=== PATIENT | female | born 1985 | race Caucasian/White ===

== ENCOUNTER 2016-03-23 11:01 | Emergency (ER) | payer OTHER ==
[2016-03-23] MEDS ORDERED: OPTIRAY 350 100 ML VIAL HMH IV ONE (11:02)
[2016-03-23] MEDS ORDERED: KETOROLAC 30 MG/ML VIAL ONE (14:17)
[2016-03-23] MEDS ORDERED: DEXAMETHASONE 4 MG/ML VIAL ONE (16:07)
[2016-03-23] MEDS ORDERED: ED CLINDAMYCIN PREMIX 50 ML IV ONE (16:08)
[2016-03-23] MEDS ORDERED: DILAUDID 1 MG/ML AMP ONE (17:02)
== END 2016-03-23 17:27 | disposition home or self-care (01) ==
LOC: ER 11:01
DX: J39.0 Retropharyngeal and parapharyngeal abscess (principal); F17.210 Nicotine dependence, cigarettes, uncomplicated
CPT/HCPCS: 36415; 70491; 71020; 72125; 80048; 85025; 86403; 87880; 96365; 96372; 96375

== ENCOUNTER 2016-03-29 21:18 | Emergency (ER) | payer OTHER ==
[2016-03-29] MEDS ORDERED: KETOROLAC 60 MG/2 ML VIAL IM ONE (22:55)
[2016-03-30] MEDS ORDERED: METHYLPRED SOD SUCC 125 MG/2 ML VIAL ONE (07:02)
== END 2016-03-29 23:23 | disposition home or self-care (01) ==
LOC: ER 21:18
DX: S93.491A Sprain of other ligament of right ankle, initial encounter (principal); X50.1XXA Overexertion from prolonged static or awkward postures, initial encounter; Y93.89 Activity, other specified; Y92.099 Unspecified place in other non-institutional residence as the place of occurrence of the external cause; F17.210 Nicotine dependence, cigarettes, uncomplicated
CPT/HCPCS: 96372